=== PATIENT | male | born 1995 | race Caucasian/White ===

== ENCOUNTER → 2018-02-10 | Outpatient (CLI) | payer OTHER ==
--- NOTE | 2018-02-10 16:37 | DIAGNOSTIC IMAGING REPORT ---
R FINGER(S) MIN 2 VIEWS ROUTINE HISTORY: 22 years-old Male PAIN OF RIGHT THUMB acute right thumb pain. COMPARISON: None available TECHNIQUE: 3 views of the right thumb FINDINGS: No acute fracture, dislocation, significant degenerative changes or opaque foreign body. Soft tissues are within normal limits. IMPRESSION: No acute fracture. The above report was generated using voice recognition software. It may contain grammatical, syntax or spelling errors. Electronically signed by: Jaron Yung M.D. 02/10/2018 4:36 PM Dictated Date/Time: 02/10/2018 4:27 PM
== END | disposition home or self-care (01) ==
LOC: C.RADPV 16:09
PROVIDERS: ATTEND Nurse Practitioner
DX: M79.644 Pain in right finger(s) (principal)